=== PATIENT | female | born 1970 | race Caucasian/White ===

== ENCOUNTER 2018-03-23 15:13 | Emergency (ER) | payer OTHER ==
[2018-03-23 15:20] VITALS: BP 106/58; PULSE 90; RESP 18; TEMP 97.8; O2SAT 98
[2018-03-23] MEDS ORDERED: SODIUM CHLOR 0.9% 1000 ML INJ 1,000 ML IV ONE (15:31)
[2018-03-23] MEDS ORDERED: diphenhydrAMINE HCL 50 MG/ML VIAL IVP ONE (15:45)
[2018-03-23] MEDS ORDERED: SODIUM CHLORIDE 0.9% FLUSH 10 ML FLUSH IVF PRN (15:45)
[2018-03-23] MEDS ORDERED: PROCHLORPERAZINE INJ 10 MG/2 ML VIAL IVP ONE (15:45)
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
--- NOTE | 2018-03-23 16:44 | RADRPT ---
EXAM DATE: 03/23/2018 4:40 PM EDT AGE/SEX: 47 years / Female INDICATIONS: Cephalgia. CLINICAL DATA: This is the patient's initial encounter. Patient reports that signs and symptoms have been present for 2 days and indicates a pain score of 9/10. MEDICAL/SURGICAL HISTORY: . TBIDrug Use None. RADIATION DOSE: 36.48 CTDI (mGy) COMPARISON: No prior [facility] exams available for comparison. TECHNIQUE: CT of the head without contrast. Using automated exposure control and adjustment of the mA and/or kV according to patient size, radiation dose was kept as low as reasonably achievable to ob tain optimal diagnostic quality images. FINDINGS: Cerebrum: The ventricles are normal for age. No evidence of midline shift, mass lesion, hemorrhage or acute infarction. No extraaxial fluid collections are seen. Posterior Fossa: The cerebellum and brainstem are intact. The 4th ventricle is midline. The cerebe llopontine angle is unremarkable. Extracranial: The visualized portion of the orbits is intact. Skull: The calvaria is intact. No evidence of skull fracture. CONCLUSION: 1. Unremarkable examination. Electronically signed by: Jose Enrique MD 03/23/2018 4:42 PM EDT
--- NOTE | 2018-03-23 16:59 | PD ---
Data Data Last Documented VS Vital Signs Date Time Temp Pulse Resp B/P (MAP) Pulse Ox O2 Delivery O2 Flow Rate FiO2 03/23/18 15:20 97.8 90 18 106/58 (74) [address] Brain W/O Iv Contrast(Rout) (03/23/18 15:31) Ecg Monitoring (03/23/18 15:31) Iv Access Insert/Monitor (03/23/18 15:31) Oximetry (03/23/18 15:31) Sodium Chloride 0.9% Flush (Ns Flush) (03/23/18 15:45) Prochlorperazine Inj (Compazine Inj) (03/23/18 15:45) Diphenhydramine Inj (Benadryl Inj) (03/23/18 15:45) Sodium Chlor 0.9% 1000 Ml Inj (Ns 1000 M (03/23/18 15:31) MDM Supervised Visit with JESUS: Yes Narrative Course I, Dr. Rankin, have reviewed the advance practice practitioner's documentation and am in agreement, met with the patient face to face, made the diagnosis, and the medical decision making was done by me. *My assessment and Findings: CT scan is negative. She came in with headache. She is under the influence of drugs which she admits to doing. No neurologic deficit. Stable for outpatient follow-up Scripts No Active Prescriptions or Reported Meds Cj Rankin MD March 23, 2018 16:59
[2018-03-23] MEDS ORDERED: IBUP-232 PO (18:05)
[2018-03-23] MEDS ORDERED: KETOROLAC TROMETHAMINE 30 MG/ML (IVP) VIAL IV PUSH ONE (18:15)
== END 2018-03-23 18:17 | disposition home or self-care (01) ==
LOC: NEPD 15:13
DX: R51 Headache (principal); F17.200 Nicotine dependence, unspecified, uncomplicated
CPT/HCPCS: 70450; 96361; 96374; 96375; 99284; J0780; J1200; J1885; J7030

== ENCOUNTER 2018-03-27 06:58 | Inpatient (IN) | payer OTHER ==
[~2018-03-27] VITALS: Ht 160 cm; Wt 80.4 kg
[~2018-03-27 06:58] MED LIST: IBUP-232 PO
[2018-03-27 09:20] VITALS: BP 111/59; PULSE 65; RESP 16; TEMP 98; O2SAT 98
[2018-03-27] MEDS: NICOTINE 21 MG/24 HR PATCH T-DERMAL SCH (11:52)
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
[2018-03-27] MEDS: SULFAMETHOXAZOLE-TRIMETHOPRIM DS 800-160 MG TAB PO SCH ×2 (16:00→20:41)
[2018-03-27 20:41] LABS: ALBUMIN 2.5 GM/DL (3.4-5.0); AST (GOT) 19 U/L (15-37); BICARBONATE 24.6 MEQ/L (21.0-32.0); CALCIUM 8.6 MG/DL (8.5-10.1); CHLORIDE 109 MEQ/L (98-107); CREATININE 0.78 MG/DL (0.50-1.00); GLOMERULAR FILTRATION RATE 79 ML/MIN (>89); GLUCOSE,RANDOM 113 MG/DL (74-106); SODIUM (NA) 143 MEQ/L (136-145)
[2018-03-27 20:42] LABS: ALT (GPT) 15 U/L (10-53)
[2018-03-27 20:43] LABS: BLOOD UREA NITROGEN 5 MG/DL (7-18)
[2018-03-27 20:44] LABS: ALKALINE PHOSPHATASE 81 U/L (45-117); TOTAL BILIRUBIN ADULT 0.2 MG/DL (0.2-1.0); TOTAL PROTEIN 5.9 GM/DL (6.4-8.2)
[2018-03-27] MEDS: REMOVE OLD NICODERM (NICOTINE) PATCH T-DERMAL SCH (20:44)
[2018-03-28 06:33] VITALS: BP 122/70; PULSE 80; RESP 20; TEMP 98.4; O2SAT 96
[2018-03-28] MEDS: SULFAMETHOXAZOLE-TRIMETHOPRIM DS 800-160 MG TAB PO SCH ×2 (09:11→21:09)
[2018-03-28] MEDS: NICOTINE 21 MG/24 HR PATCH T-DERMAL SCH (09:11)
--- NOTE | 2018-03-28 10:01 | HHI.HP ---
Provisional Diagnosis Admission Date Mar 27, 2018 at 09:13 [place] I. 1. Adjustment disorder with depressed mood 2. Malingering for penitentiary 3. Polysubstance abuse [place] II. Deferred Certification of Person's Competence To Provide Express and Informed Consent I have personally examined Doreen Cardozo , a person being served at [facility] on, Mar 28, 2018 10:01. Express and informed consent means consent voluntarily given in writing, by a competent person, after sufficient explanation and disclosure of the subject matter involved to enable the person to make a knowing and willful decision without any element of force, fraud, deceit, duress, or other form of constraint or coercion. This person is 18 years of age or older, is not now known to be incompetent to consent to treatment with a guardian advocate, and does not have a health care surrogate or proxy currently making medical treatment decisions. I have found this person to be one of the following: [x] Competent to provide express and informed consent, as defined above, for voluntary admission to this facility and is competent to provide express and informed consent for treatment. He/she has the consistent capacity to make well reasoned, willful, and knowing decisions concerning his or her medical or mental health treatment. The person fully and consistently understands the purpose of the admission for examination/placement and is fully capable of personally exercising all rights assured [place] Incompetent to provide express and informed consent to voluntary admission, and this is incompetent to provide express and informed consent to treatment. The person must be transferred to involuntary status and a petition for a guardian advocate filed with the Circuit Court. [] Refusing to provide express and informed consent to voluntary admission but is competent to provide express and informed consent for treatment. The person must be discharged or transferred to involuntary status. Form shall be completed within 24 hours of a person's arrival at the receiving facility and filed in the clinical record of each person: 1. Admitted on a voluntary basis 2. Permitted to provide express and informed consent to his/her own treatment 3. Allowed to transfer from involuntary to voluntary status 4. Prior to permitting a person to consent to his or her own treatment after having been previously found incompetent to consent to treatment. History of Present Illness Capacity: Has Capacity Psych Chief Complaint: Suicidal threats HPI Ms. Cardozo is a 47-year-old female with a reported history of bipolar disorder who presents in transfer from [facility] under a Tellez act. Documentation from outside hospital reviewed. Patient presented there initially complaining of headache. She was evaluated and medically cleared. As she was being discharged, notes indicate that the patient "stated she lives in [place]/does not have home and does not want to leave the hospital." Notes further indicate that the patient threatened to jump in front of a car if she were discharged. Patient's case was presented to on-call psychiatrist Dr. Acosta at [facility] who is documented to have said that he knows the patient very well and that she has made similar threats in the past and that he believes that she is low risk "since there is a secondary gain that the patient is trying to achieve with making such comments." Despite this, decision was made at outside hospital to Tellez act the patient and send her to [place]. Reviewing our own electronic medical record, I see no previous psychiatric contact within our system. Patient seen and examined with nurse. Chart reviewed. Case discussed with nursing staff. On my examination today, the patient is a vague and fairly manipulative historian. She claims to have felt depressed for the last month without clear trigger. She endorses some guilty feelings "missing out on my grandkids." She says that she had suicidal ideation "the other night" with plan to jump in front of a vehicle, although she denies any suicidal ideation now. No other depressive symptoms. No hypomanic or manic symptoms presently, although the patient does report a history of bipolar disorder and insists that she has had an episode consistent with adrien as I describe it to her in the past. She reports audiovisual hallucinations in the past associated with substance use but denies any now. I can elicit no paranoia, no ideas of reference, no thought insertion or withdrawal or other delusional material. Remainder of the psychiatric ROS is negative. No acute physical complaints. Past psychiatric history: Patient reports a history of bipolar disorder. She is not currently under the care of a psychiatrist. She was admitted a few years ago to a facility called [facility]. She endorses previous suicide attempt by jumping in front of a car in 1998. She reports 1 other suicide attempt although she cannot recall the method. She denies any history of violent behavior. Family history: Patient is unsure of family psychiatric history. She does think that a cousin may have completed suicide. Chemical dependency history: The patient admits to current methamphetamine use. She endorses a history of cocaine and opiate use in the past. She has had a history of outpatient chemical dependency treatment. No reported history of abuse of GABAergic agents. Social history: Patient is homeless. She is . She has 3 sons and also has a daughter who 3 years ago following a motor vehicle accident. She has 1/10 grade education. She does not work. Denies any history. Denies any legal history. Denies any access to guns or firearms. She is a Protestant. She denies any history of abuse. Review of Systems Except as stated in HPI: all other systems reviewed are Neg Past Family Social History Coded Allergies: No Known Allergies (Verified Allergy, Mild, 03/23/18) milk (Verified Allergy, Unknown, 03/27/18) Past Medical History See electronic medical record Active Scripts Ibuprofen (Ibuprofen) 600 Mg Tab, 600 MG PO TID Y for PAIN SCALE 1 TO 10, #21 TAB 0 Refills Prov:Deborah Redman 03/23/18 Current Medications Medications (Trade) Dose Ordered Sig/Florinda Route Start Time Stop Time Status Last Admin (Habitrol 21 Mg Patch.24 Hr) 1 patch DAILY T-DERMAL 03/27/18 12:00 03/28/18 09:11 Miscellaneous Information 1 HS T-DERMAL 03/27/18 21:00 03/27/18 20:44 (Bactrim Ds 800-160 Mg) 1 tab Q12HR PO 03/27/18 16:00 04/06/18 15:59 03/28/18 09:11 Patient's Strengths (min. 2) Attending to basic needs. Verbally fluent. Physical Exam Physical examination completed by ED provider at outside hospital. On my examination today, the patient appears to be in no acute physical distress. No motor abnormalities noted. No signs of intoxication or withdrawal noted. Labs and vitals reviewed: Vital Signs Vital Signs Date Time Temp Pulse Resp B/P (MAP) Pulse Ox O2 Delivery O2 Flow Rate FiO2 03/28/18 06:33 98.4 80 20 122/70 (87) 96 Lab Results Test 03/27/18 19:50 03/28/18 06:00 Blood Urea Nitrogen 5 MG/DL Creatinine 0.78 MG/DL Random Glucose 113 MG/DL Total Protein 5.9 GM/DL Albumin 2.5 GM/DL Calcium Level 8.6 MG/DL Alkaline Phosphatase 81 U/L Aspartate Amino Transf (AST/SGOT) 19 U/L Alanine Aminotransferase (ALT/SGPT) 15 U/L Total Bilirubin 0.2 MG/DL Sodium Level 143 MEQ/L Potassium Level 4.0 MEQ/L Chloride Level 109 MEQ/L Carbon Dioxide Level 24.6 MEQ/L Anion Gap 9 MEQ/L Estimat Glomerular Filtration Rate 79 ML/MIN Laboratories from outside hospital reviewed: CBC reveals white blood cell count of 12.1. CMP unremarkable. Alcohol level undetectable. Hydroxybutyrate level undetectable. Glucose level 234. CT head no acute process. Urine toxicology positive for amphetamines and cannabinoids. Urinalysis reveals no leukocyte esterase no nitrites no pyuria. Mental Status Examination Appearance: Appropriate Consciousness: Alert Orientation: x4 Motor Activity: Normal gait Speech: Unremarkable Language: Adequate Fund of Knowledge: Adequate Attention and Concentration: Adequate Memory: Unremarkable (Grossly intact on clinical exam) Mood: Other (Dysphoric) Affect: Other (Tearful at times) Thought Process & Associations: Intact, Logical, Linear Thought Content: Appropriate Hallucination Type: None Delusion Type: None Suicidal Ideation: No Suicidal Plan: No Suicidal Intention: No Homicidal Ideation: No Homicidal Plan: No Homicidal Intention: No Insight: Fair Judgment: Impulsive Assessment & Plan Problem List: (1) Adjustment disorder with depressed mood ICD Codes: F43.21 - Adjustment disorder with depressed mood (2) Malingering ICD Codes: Z76.5 - Malingerer [conscious simulation] (3) Polysubstance abuse ICD Codes: F19.10 - Other psychoactive substance abuse, uncomplicated Assessment & Plan 47-year-old female with psychiatric history as detailed above who presents in transfer from outside hospital under a Tellez act. In reviewing documentation from outside hospital, it seems quite likely that she was malingering psychiatric symptoms at outside hospital with the goal of obtaining admission to inpatient unit for penitentiary. Admission having been obtained, the patient is now denying suicidal ideation presently. She does admit to some ongoing dysphoria and reports a history of possible manic episode in the past. 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 Admit inpatient. Voluntary status. Initiate Seroquel 50 mg at bedtime to target patient's dysphoria. Atarax as needed for anxiety. Benadryl as needed for sleep. R/B/A for medications discussed with patient. Hospitalist already consulted. Check beta hCG and hemoglobin A1c. Patient had significant hyperglycemia at outside hospital, and so I will initiate diabetic diet and Accu -Cheks with sliding scale while awaiting hemoglobin A1c. Check EKG for QTc. Vitals every shift. Counselor to see. Disposition planning. Estimated length of stay: 2-3 days. Discharge Planning Pending outcome of observation Request HC Surrog/Guard Advoc?: No Julio Thao MD Mar 28, 2018 10:01
[2018-03-28] MEDS ORDERED: LIDOCAINE 1%/EPINEPHrine 1:100,000 SOLN 20 ML VIAL INFIL ONE (12:15)
[2018-03-28] MEDS ORDERED: DEXTROSE 50% IN WATER 50 ML VIAL(D50) IV PUSH PRN (12:30)
[2018-03-28] MEDS ORDERED: GLUCAGON 1 MG/ML VIAL OTHER PRN (12:30)
--- NOTE | 2018-03-28 14:48 | MB ---
cc: Weston Alicea MD DATE: 03/28/2018 CHIEF COMPLAINT AND REASON FOR CONSULTATION: Right lower quadrant abdominal wall abscess. HISTORY OF PRESENT ILLNESS: The patient is a 47-year-old female who presents with polysubstance abuse, IVDA, depression and suicidal ideation with drug addiction. The patient was noted to be injecting methamphetamines approximately 4-5 days ago when she started to develop redness and pain at her right lower quadrant of the abdomen. She states the pain was a 6/10 currently is 5/10, no radiation, worse with movement, better with lying still. She also noted associated warmth and redness that continued to get worse with some drainage. She denied any associated fevers or chills. She is otherwise tolerating diet and eating regularly. She has no history of previous abscesses. Surgery was consulted for further evaluation. PAST MEDICAL HISTORY: Hepatitis C, head injury, depression. PAST SURGICAL HISTORY: Tubal ligation. MEDICATIONS: See EMR. ALLERGIES: NO KNOWN DRUG ALLERGIES. SOCIAL HISTORY: Positive smoking 1-1/2 packs per day, occasional ETOH, positive IVDA, history of cocaine use. FAMILY HISTORY: denies htn or diabetes REVIEW OF SYSTEMS: GENERAL: Denies fever or chills. HEENT: Denies eye pain, ear pain. NECK: Denies swelling or pain. LUNGS: Denies cough or wheeze. HEART: Denies palpitations or chest pain. ABDOMEN: Complains of abdominal pain. Denies vomiting. GENITOURINARY: Denies dysuria, hematuria. ENDOCRINE: Denies polyuria or polydipsia. INTEGUMENT: Denies any masses. Complains of redness. PHYSICAL EXAMINATION: GENERAL: In no acute distress. VITAL SIGNS: Temperature 98, pulse 65, respirations 16, blood pressure 111/59, saturation 98%. HEENT: Pupils equal, round, reactive. NECK: Supple. Trachea midline. LUNGS: Clear to auscultation, bilateral expansion. HEART: S1, S2. Regular rhythm. ABDOMEN: Soft. EXTREMITIES: Positive tenderness to palpation in the right lower quadrant. Area of erythema approximately 15 x 15 cm. Two punctate lesions with purulent exudate draining from that. Two other small palpable nodules, right lower anterior abdomen, 1 x 1 cm each. Positive tenderness to palpation. No other abscesses noted. PSYCHIATRIC: Depression, appropriate judgment. NEUROLOGIC: 5/5 in all extremities. GCS of 15. LABORATORY AND DIAGNOSTIC DATA: Pending. Sodium 143, potassium 4, chloride 109, BUN 5, creatinine 0.7, calcium 8.6, AST 19, ALT 15, albumin 2.5. ASSESSMENT: The patient is a 47-year-old female with right lower quadrant abdominal abscess. PLAN: In a full workup, patient with above-named issues At this point, recommend IV antibiotics. The patient can have a regular diet. I will check an ultrasound to quantify the size of fluid collection and also evaluate the other 2 palpable nodules that are in the subcutaneous tissue. The patient will likely need I and D at bedside. Discussed with the patient in detail. Continue pain control, close monitoring and wound care. MD KESHA Lopez/NEISHA , 02:17 PM , 02:47 PM DALE
[2018-03-28 14:51] LABS: AUTOMATED NEUTROPHIL # 5.6 TH/MM3 (1.8-7.7); BASOPHIL # 0.1 TH/MM3 (0-0.2); BASOPHIL % 1.3 % (0.0-2.0); EOSINOPHIL # 0.1 TH/MM3 (0-0.4); EOSINOPHIL % 1.5 % (0.0-4.0); HEMATOCRIT 36.8 % (35.0-46.0); HEMOGLOBIN 11.9 GM/DL (11.6-15.3); LYMPH % 34.7 % (9.0-44.0); LYMPHOCYTE # 3.4 TH/MM3 (1.0-4.8); MEAN CELL VOLUME 83.1 FL (80.0-100.0); MEAN CORPUSCULAR HEMOGLOBIN 26.8 PG (27.0-34.0); MEAN CORPUSCULAR HGB CONC 32.3 % (32.0-36.0); MEAN PLATELET VOLUME 9.9 FL (7.0-11.0); MONO % 5.9 % (0.0-8.0); MONOCYTE # 0.6 TH/MM3 (0-0.9); NEUT % 56.6 % (16.0-70.0); PLATELET COUNT 318 TH/MM3 (150-450); RED BLOOD COUNT 4.43 MIL/MM3 (4.00-5.30); RED CELL DISTRIBUTION WIDTH 15.7 % (11.6-17.2); WHITE BLOOD COUNT 9.9 TH/MM3 (4.0-11.0)
[2018-03-28] MEDS: ACETAMINOPHEN 325 MG TAB PO PRN ×2 (16:06→21:09)
[2018-03-28] MEDS: INSULIN ASPART SUPPLEMENTAL SCALE SQ SCH ×2 (16:47→21:00)
[2018-03-28 16:57] VITALS: BP 120/72; PULSE 77; RESP 18; TEMP 97.9; O2SAT 100
[2018-03-28 17:06] LABS: HEMOGLOBIN A1C 5.8 % (4.3-6.0)
[2018-03-28] MEDS: hydrOXYzine HCL 50 MG TAB PO PRN (18:52)
--- NOTE | 2018-03-28 19:17 | PD.OP ---
Operative Report Date of Surgery: Mar 28, 2018 Preoperative Diagnosis: (1) Abscess of skin of abdomen Postoperative Diagnosis: (1) Abscess of skin of abdomen Procedure: Incision and drainage of superficial abdominal abscesses Anesthesia: Local Surgeon: Margarita NAVARRO supervised by Dr. Alicea [employer] Operator(s): None Operation and Findings: After informed consent and the proper time out procedure was completed, the three areas that needed to be incised and drained where cleaned with Betadine and draped with sterile OR towels. The areas were injected with small wheals of lidocaine. Small incisions were made into the abscesses and drained. Cultures were obtained. 1/4 inch Iodoform packing was placed into the cavities to allow continued drainage. All supplies including sharps were obtained, collected and disposed of in the proper manner. The patient tolerated the procedure well. IAM Tatum was present for the entirety of the procedure. Margarita Howell/Social Service Liaison MELANIE Mar 28, 2018 19:17
[2018-03-28] MEDS ORDERED: diphenhydrAMINE HCL 50 MG CAP PO PRN (21:00)
[2018-03-28] MEDS ORDERED: QUEtiapine FUMARATE 25 MG TAB PO SCH (21:00)
[2018-03-28] MEDS: REMOVE OLD NICODERM (NICOTINE) PATCH T-DERMAL SCH (21:00)
--- NOTE | 2018-03-28 22:25 | RADRPT ---
EXAM DATE: 03/28/2018 2:34 PM EDT AGE/SEX: 47 years / Female INDICATIONS: Abdominal palpable lumps. CLINICAL DATA: This is the patient's initial encounter. Patient reports that signs and symptoms have been present for 3 days and indicates a pain score of 5/10. Location: Laterality: MEDICAL/SURGICAL HISTORY: Previous head injuries. Depression. Substance use. Tubal ligation. COMPARISON: No prior [facility] exams available for comparison. No external comparison. FINDINGS: In the areas of palpable abnormality there are multiple small complex septated fluid collections in t he right lower quadrant anterior abdominal wall measuring up to 10 mm x 7 mm x 6 mm and 10 mm x 8 mm x 7 mm. On the left side additional complex fluid/phlegmonous mass measures up to 2 x 2.1 x 0.7 cm an d 1.4 x 1.2 x 1.3 cm. CONCLUSION: 1. Multiple complex fluid collections or phlegmonous masses in the lower anterior abdominal wall on the left side and the right side, possibly small subcutaneous abscesses or inflammatory changes. Electronically signed by: Enrrique Beach MD 03/28/2018 10:24 PM EDT
[2018-03-29 06:00] VITALS: BP 119/72; PULSE 82; RESP 17; TEMP 97.6; O2SAT 97
[2018-03-29] MEDS: INSULIN ASPART SUPPLEMENTAL SCALE SQ SCH ×4 (08:00→21:00)
--- NOTE | 2018-03-29 09:00 | HHI.PYPN ---
Subjective Chief Complaint: Suicidal threats Remarks Patient seen and examined with nurse. Chart reviewed. Case discussed with nursing staff. No behavioral issues noted overnight. Case discussed in treatment team. On my examination today, the patient reports that she slept well overnight with the addition of Seroquel. Mood is slowly improving. She denies any suicidal or homicidal ideation. Denies any audiovisual hallucinations. Denies any side effects from medications. Complains of some mild discomfort associated with abscesses but no other physical complaints. She reports that it is her plan after discharge to go stay with her mother in [facility]. Counselor has confirmed with mother that patient is able to stay with her. Review of Systems Except as stated in HPI: all other systems reviewed are Neg Mental Status Examination Appearance: Appropriate Consciousness: Alert Orientation: x4 Motor Activity: Other (No motor abnormalities noted) Speech: Unremarkable Language: Adequate Fund of Knowledge: Adequate Attention and Concentration: Adequate Memory: Unremarkable (Grossly intact on clinical exam) Mood: Other (Improving) Affect: Blunt Thought Process & Associations: Intact, Logical, Linear Thought Content: Appropriate Hallucination Type: None Delusion Type: None Suicidal Ideation: No Suicidal Plan: No Suicidal Intention: No Homicidal Ideation: No Homicidal Plan: No Homicidal Intention: No Insight: Fair Judgment: Impulsive Results Labs Test 03/28/18 13:25 White Blood Count 9.9 TH/MM3 Red Blood Count 4.43 MIL/MM3 Hemoglobin 11.9 GM/DL Hematocrit 36.8 % Mean Corpuscular Volume 83.1 FL Mean Corpuscular Hemoglobin 26.8 PG Mean Corpuscular Hemoglobin Concent 32.3 % Red Cell Distribution Width 15.7 % Platelet Count 318 TH/MM3 Mean Platelet Volume 9.9 FL Neutrophils (%) (Auto) 56.6 % Lymphocytes (%) (Auto) 34.7 % Monocytes (%) (Auto) 5.9 % Eosinophils (%) (Auto) 1.5 % Basophils (%) (Auto) 1.3 % Neutrophils # (Auto) 5.6 TH/MM3 Lymphocytes # (Auto) 3.4 TH/MM3 Monocytes # (Auto) 0.6 TH/MM3 Eosinophils # (Auto) 0.1 TH/MM3 Basophils # (Auto) 0.1 TH/MM3 CBC Comment DIFF FINAL Differential Comment Hemoglobin A1c 5.8 % Beta HCG, Qualitative 3 MIU/ML Date/Time Source Procedure Growth Status 03/28/18 17:00 Abscess Abdomen Gram Stain Pending Received 03/28/18 17:00 Abscess Abdomen Wound Culture Pending Received Labs reviewed Last Impressions Soft Tissue Ultrasound 03/28/18 0000 Signed Impressions: CONCLUSION: 1. Multiple complex fluid collections or phlegmonous masses in the lower anter ior abdominal wall on the left side and the right side, possibly small subcutan eous abscesses or inflammatory changes. EKG is NSR with QTc 410ms. Vitals/IOs Vital Signs Date Time Temp Pulse Resp B/P (MAP) Pulse Ox O2 Delivery O2 Flow Rate FiO2 03/29/18 06:00 97.6 82 17 119/72 (88) 97 Intake and Output 03/29/18 03/29/18 03/30/18 08:00 16:00 00:00 Intake Total 600 ml 360 ml Balance 600 ml 360 ml Assessment & Plan Problem List: (1) Adjustment disorder with depressed mood ICD Codes: F43.21 - Adjustment disorder with depressed mood (2) Malingering ICD Codes: Z76.5 - Malingerer [conscious simulation] (3) Polysubstance abuse ICD Codes: F19.10 - Other psychoactive substance abuse, uncomplicated Assessment & Plan Titrate Seroquel to 75 mg at bedtime for additional mood stabilization. Hospitalist and surgery input noted and appreciated. Will follow up wound cultures. Continue to monitor on the inpatient unit. Continue other medications and care as ordered. Justification for Cont. Inpt. Medication changes. Complicating conditions. Discharge Planning Anticipate psychiatric stabilization within the next 1-3 days. Disposition thereafter will depend on whether the patient is medically cleared at that time. Request HC Surrog/Guard Advoc?: No Julio Thao MD Mar 29, 2018 08:59
[2018-03-29] MEDS: NICOTINE 21 MG/24 HR PATCH T-DERMAL SCH (09:04)
[2018-03-29] MEDS: SULFAMETHOXAZOLE-TRIMETHOPRIM DS 800-160 MG TAB PO SCH ×2 (09:04→21:06)
[2018-03-29] MEDS: ACETAMINOPHEN 325 MG TAB PO PRN ×2 (09:11→16:11)
--- NOTE | 2018-03-29 09:12 | HHI.PR ---
Subjective Remarks Follow up on patient with abdominal abscesses. Patient seen and examined. Patient denies any fever or chills. Denies any rash. Denies any chest pain or shortness of breath. Reports incisional pain controlled at present. She has not had the dressings changed as of yet. No diarrhea. Patient has not had BM since admission. Afebrile, VSS. Wound cx pending. Objective Vitals Vital Signs Date Time Temp Pulse Resp B/P (MAP) Pulse Ox O2 Delivery O2 Flow Rate FiO2 03/29/18 06:00 97.6 82 17 119/72 (88) 97 03/28/18 16:57 97.9 77 18 120/72 (88) 100 I/O 03/28/18 03/28/18 03/28/18 03/29/18 03/29/18 03/29/18 07:00 15:00 23:00 07:00 15:00 23:00 Intake Total 580 ml 600 ml 360 ml Balance 580 ml 600 ml 360 ml Intake Oral 480 ml 600 ml 360 ml Oral Supplement 100 ml # Voids 1 Result Diagram: 03/28/18 1325 03/27/18 1950 Imaging Last Impressions Soft Tissue Ultrasound 03/28/18 0000 Signed Impressions: CONCLUSION: 1. Multiple complex fluid collections or phlegmonous masses in the lower anter ior abdominal wall on the left side and the right side, possibly small subcutan eous abscesses or inflammatory changes. Objective Remarks GENERAL: Well-nourished, well-developed middle-aged female patient in [facility]. Awake and alert. Appears comfortable. SKIN: Warm and dry. No rash. Bilateral lateral abdomen/flank area s/p I&D with dressings in place, saturated with serosanguineous fluid. HEAD: Normocephalic. Atraumatic. EYES: Pupils equal and round. No scleral icterus. No injection or drainage. ENT: No nasal bleeding or discharge. Mucous membranes pink and moist. NECK: Supple. Trachea midline. CARDIOVASCULAR: Regular rate and rhythm. No murmur appreciated. RESPIRATORY: Nonlabored. Clear to auscultation. Breath sounds equal bilaterally. GASTROINTESTINAL: Abdomen soft, non-tender, nondistended. Normoactive bowel sounds x4. MUSCULOSKELETAL: No obvious deformities. Extremities without clubbing, cyanosis , or edema. NEUROLOGICAL: Awake and alert. No obvious cranial nerve deficits. Motor grossly within normal limits. Moving all extremities spontaneously. Normal speech. PSYCHIATRIC: Calm and cooperative with examination. Procedures s/p bedside I&D bilateral lateral abdominal/flank areas by Dr. Alicea A/P Problem List: (1) Abscess of skin of abdomen ICD Code: L02.211 - Cutaneous abscess of abdominal wall Assessment and Plan 47-year-old female with history of head injury in 1998, polysubstance use, IVDU , tobacco use, admitted to inpatient psych for depression, suicidal ideation, and drug addiction. Hospitalist consulted for "draining abscesses on abdomen". Depression/suicidal ideation: Acute -Continue management per psychiatry Polysubstance Abuse/IVDU: Acute -Patient reports she wants help getting clean -Continue management per psychiatry -Monitor for withdrawal Right abdominal abscesses 2: Acute, after injecting methamphetamine into this area. Afebrile. -GS following, s/p bedside I&D. To begin BID dressing changes today per GS. Ok to continue with po Bactrim. -Started on Bactrim 1 tab p.o. twice daily 10 days, continue -follow up on final culture results -Tylenol prn pain -Monitor for improvement Tobacco use: Chronic, smokes 1-1.5 PPD -Pastry Cook on cessation -Nicotine patch Constipation -begin PeriColace BID -monitor for BM DVT prophylaxis: Patient is ambulatory Floridalma Parmar Mar 29, 2018 09:12
--- NOTE | 2018-03-29 10:01 | HHI.PR ---
Subjective Subjective Notes Resting in bed Upset that dressings needs to be changed Objective Vitals/I&O Vital Signs Date Time Temp Pulse Resp B/P (MAP) Pulse Ox O2 Delivery O2 Flow Rate FiO2 03/29/18 06:00 97.6 82 17 119/72 (88) 97 Labs Laboratory Tests Test 03/28/18 13:25 White Blood Count 9.9 Red Blood Count 4.43 Hemoglobin 11.9 Hematocrit 36.8 Mean Corpuscular Volume 83.1 Mean Corpuscular Hemoglobin 26.8 Mean Corpuscular Hemoglobin Concent 32.3 Red Cell Distribution Width 15.7 Platelet Count 318 Mean Platelet Volume 9.9 Neutrophils (%) (Auto) 56.6 Lymphocytes (%) (Auto) 34.7 Monocytes (%) (Auto) 5.9 Eosinophils (%) (Auto) 1.5 Basophils (%) (Auto) 1.3 Neutrophils # (Auto) 5.6 Lymphocytes # (Auto) 3.4 Monocytes # (Auto) 0.6 Eosinophils # (Auto) 0.1 Basophils # (Auto) 0.1 CBC Comment DIFF FINAL Differential Comment Hemoglobin A1c 5.8 Beta HCG, Qualitative 3 Date/Time Source Procedure Growth Status 03/28/18 17:00 Abscess Abdomen Gram Stain - Final Resulted 03/28/18 17:00 Abscess Abdomen Wound Culture Pending Resulted Cardiovascular: Regular Lungs: Clear Abdomen: Other (s/p I&D of RIGHT midabomen and LEFT midabomen--- packing removed and repacked--- far less redness than yesterday ) Extremities: No edema A/P Assessment and Plan 47 year old female POD1 bedside I&D of superficial abdominal abscesses -Continue BID dressing changes with Iodoform packing -Await cultures -Currently on Bactrim -Regular diet -Okay to shower inbetween dressing changes -Dressings done with IAM Maldonado Attending Statement patient seen at bedside pt doing better still with pain but better packing in place no fevers c/w dressing changes Attestation The exam, history, and the medical decision-making described in the above note were completed with the assistance of the mid-level provider. I reviewed and agree with the findings presented. I attest that I had a [id number] encounter with the patient on the same day, and personally performed and documented my assessment and findings in the medical record. Margarita Howell/First Gage NAVARRO Mar 29, 2018 10:01 Weston Alicea MD Apr 04, 2018 22:14
--- NOTE | 2018-03-29 15:22 | EKG ---
Date Performed: 03/28/2018 Time Performed: 13:56:00 PTAGE: 47 years EKG: Sinus rhythm NORMAL ECG NO PREVIOUS TRACING DOCTOR: Nora Lima Interpretating Date/Time 03/29/2018 15:20:57
[2018-03-29] MEDS: DOCUSATE SODIUM 50 MG/SENNA 8.6 MG TAB PO SCH ×2 (16:11→21:06)
[2018-03-29] MEDS ORDERED: Vancomycin Consult Pharmacy 1 EA OTHER SCH (16:15)
[2018-03-29] MEDS ORDERED: VANCOMYCIN 1,500 MG/NS 500 ML IV ONE ×2 (17:00)
[2018-03-29 18:10] VITALS: BP 98/62; PULSE 68; RESP 16; TEMP 98.1; O2SAT 96
[2018-03-29] MEDS: REMOVE OLD NICODERM (NICOTINE) PATCH T-DERMAL SCH (21:00)
[2018-03-29] MEDS ORDERED: QUEtiapine FUMARATE 25 MG TAB PO SCH (21:00)
[2018-03-30] MEDS: ACETAMINOPHEN 325 MG TAB PO PRN ×2 (04:35→10:16)
[2018-03-30] MEDS: VANCOMYCIN 1,000 MG/NS 250 ML IV SCH ×4 (04:36→17:00)
[2018-03-30 05:41] VITALS: BP 97/53; PULSE 55; RESP 16; TEMP 98.4; O2SAT 97
--- NOTE | 2018-03-30 07:52 | HHI.PR ---
Subjective Remarks Follow up on patient with abdominal abscesses. Patient seen and examined. Patient complaining of persistent right sided abdominal pain since having dressings changed yesterday. She refuses to have another dressing change without pain medication. She denies any fever or chills. She denies any chest pain or dyspnea. She denies any N/V. She has not had a BM since admission but states she "feels close". She is afebrile. Objective Vitals Vital Signs Date Time Temp Pulse Resp B/P (MAP) Pulse Ox O2 Delivery O2 Flow Rate FiO2 03/30/18 05:41 98.4 55 16 97/53 (68) 97 03/30/18 05:35 16 03/29/18 18:10 98.1 68 16 98/62 (74) 96 I/O 03/29/18 03/29/18 03/29/18 03/30/18 03/30/18 03/30/18 07:00 15:00 23:00 07:00 15:00 23:00 Intake Total 600 ml 360 ml 1320 ml 480 ml Balance 600 ml 360 ml 1320 ml 480 ml Intake Oral 600 ml 360 ml 1320 ml 480 ml # Voids 1 2 Result Diagram: 03/28/18 1325 03/27/18 1950 Imaging Last Impressions Soft Tissue Ultrasound 03/28/18 0000 Signed Impressions: CONCLUSION: 1. Multiple complex fluid collections or phlegmonous masses in the lower anter ior abdominal wall on the left side and the right side, possibly small subcutan eous abscesses or inflammatory changes. Objective Remarks GENERAL: Well-nourished, well-developed middle-aged female patient in [facility]. Asleep but easily awakens to voice. SKIN: Warm and dry. No rash. Bilateral lateral abdomen/flank area s/p I&D with dressings in place, right sided dressings with bloody drainage, left sided dressing C/D/I. HEAD: Normocephalic. Atraumatic. EYES: Pupils equal and round. No scleral icterus. No injection or drainage. ENT: No nasal bleeding or discharge. Mucous membranes pink and moist. NECK: Supple. Trachea midline. CARDIOVASCULAR: Regular rate and rhythm. No murmur appreciated. RESPIRATORY: Nonlabored. Clear to auscultation. Breath sounds equal bilaterally. GASTROINTESTINAL: Abdomen soft, non-tender, nondistended. Normoactive bowel sounds x4. MUSCULOSKELETAL: No obvious deformities. Extremities without clubbing, cyanosis , or edema. NEUROLOGICAL: Awake and alert. No obvious cranial nerve deficits. Motor grossly within normal limits. Moving all extremities spontaneously. Normal speech. PSYCHIATRIC: Calm and cooperative with examination. Procedures s/p bedside I&D bilateral lateral abdominal/flank areas by Dr. Alicea A/P Problem List: (1) Abscess of skin of abdomen ICD Code: L02.211 - Cutaneous abscess of abdominal wall Assessment and Plan 47-year-old female with history of head injury in 1998, polysubstance use, IVDU , tobacco use, admitted to inpatient psych for depression, suicidal ideation, and drug addiction. Hospitalist consulted for "draining abscesses on abdomen". Depression/suicidal ideation: Acute -Continue management per psychiatry Polysubstance Abuse/IVDU: Acute -Patient reports she wants help getting clean -Continue management per psychiatry -Monitor for withdrawal Right abdominal abscesses 2: Acute, after injecting methamphetamine into this area. Afebrile. -GS following, s/p bedside I&D. Continue BID dressing changes with iodoform packing per GS orders. Pain management for dressing changes per GS. -Gram stain gram + cocci in pairs, wound cx growing GNR -continue on IV Vancomycin -Started on Bactrim 1 tab p.o. 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
[2018-03-30] MEDS: INSULIN ASPART SUPPLEMENTAL SCALE SQ SCH ×4 (08:00→20:40)
[2018-03-30] MEDS ORDERED: POLYETHYLENE GLYCOL 17 GM PKG PO ONE (08:00)
[2018-03-30] MEDS: NICOTINE 21 MG/24 HR PATCH T-DERMAL SCH (09:00)
[2018-03-30 09:04] LABS: CREATININE 0.93 MG/DL (0.50-1.00)
[2018-03-30] MEDS: SULFAMETHOXAZOLE-TRIMETHOPRIM DS 800-160 MG TAB PO SCH ×2 (10:10→22:14)
[2018-03-30] MEDS: DOCUSATE SODIUM 50 MG/SENNA 8.6 MG TAB PO SCH ×2 (10:10→22:14)
--- NOTE | 2018-03-30 10:51 | HHI.PYPN ---
Subjective Chief Complaint: Suicidal threats Remarks Patient seen and examined with nurse. Chart reviewed. Case discussed with nursing staff. On my examination today, the patient continues to complain of some low mood. She is intermittently tearful. She does feel that she is improving with Seroquel and is tolerating this medication well. No SI or HI. Says that she is hopeful to go stay with her mother to assist in the care of patient's grandchildren who reside with mother. No side effects from medications. No acute physical complaints. Review of Systems Except as stated in HPI: all other systems reviewed are Neg Mental Status Examination Appearance: Appropriate Consciousness: Alert Orientation: x4 Motor Activity: Other (No abnormal motor movements noted) Speech: Unremarkable Language: Adequate Fund of Knowledge: Adequate Attention and Concentration: Adequate Memory: Unremarkable (Grossly intact on clinical exam) Mood: Other (Dysphoric but improving) Affect: Blunt Thought Process & Associations: Intact, Logical, Linear Thought Content: Appropriate Hallucination Type: None Delusion Type: None Suicidal Ideation: No Suicidal Plan: No Suicidal Intention: No Homicidal Ideation: No Homicidal Plan: No Homicidal Intention: No Insight: Fair Judgment: Impulsive Results Labs Test 03/30/18 07:59 Blood Urea Nitrogen 9 MG/DL Creatinine 0.93 MG/DL Estimat Glomerular Filtration Rate 65 ML/MIN Date/Time Source Procedure Growth Status 03/28/18 17:00 Abscess Abdomen Gram Stain - Final Complete 03/28/18 17:00 Wound Culture - Final Klebsiella Oxytoca Complete Labs reviewed Vitals/IOs Vital Signs Date Time Temp Pulse Resp B/P (MAP) Pulse Ox O2 Delivery O2 Flow Rate FiO2 03/30/18 05:41 98.4 55 16 97/53 (68) 97 Intake and Output 03/30/18 03/30/18 03/31/18 08:00 16:00 00:00 Intake Total 480 ml Balance 480 ml Assessment & Plan Problem List: (1) Adjustment disorder with depressed mood ICD Codes: F43.21 - Adjustment disorder with depressed mood (2) Malingering ICD Codes: Z76.5 - Malingerer [conscious simulation] (3) Polysubstance abuse ICD Codes: F19.10 - Other psychoactive substance abuse, uncomplicated Assessment & Plan Titrate Seroquel to 25 mg in the morning and 100 mg at bedtime for mood stabilization. Hospitalist input noted and appreciated. Continue to monitor on the medical psychiatric unit. Continue other medications and care as ordered. Justification for Cont. Inpt. Med changes. Risk for decompensation in less restrictive environment. Discharge Planning Pending psychiatric stabilization Request HC Surrog/Guard Advoc?: No Julio Thao MD Mar 30, 2018 10:51
[2018-03-30] MEDS: QUEtiapine FUMARATE 25 MG TAB PO SCH ×2 (11:00→22:14)
[2018-03-30] MEDS: hydrOXYzine HCL 50 MG TAB PO PRN (14:00)
[2018-03-30] MEDS ORDERED: PHARMACY ORDERED LAB ONE (16:45)
[2018-03-30 18:00] VITALS: BP 103/59; PULSE 71; RESP 17; TEMP 98.1; O2SAT 94
[2018-03-30] MEDS: REMOVE OLD NICODERM (NICOTINE) PATCH T-DERMAL SCH (21:00)
[2018-03-31] MEDS: VANCOMYCIN 1,000 MG/NS 250 ML IV SCH ×2 (05:27)
[2018-03-31 07:54] VITALS: BP 94/50; PULSE 58; RESP 17; TEMP 97.5; O2SAT 94
[2018-03-31] MEDS: INSULIN ASPART SUPPLEMENTAL SCALE SQ SCH ×4 (08:00→21:00)
[2018-03-31] MEDS: DOCUSATE SODIUM 50 MG/SENNA 8.6 MG TAB PO SCH ×2 (09:00→22:18)
[2018-03-31 09:20] VITALS: BP 102/51; PULSE 72
[2018-03-31] MEDS: SULFAMETHOXAZOLE-TRIMETHOPRIM DS 800-160 MG TAB PO SCH ×2 (09:21→22:18)
[2018-03-31] MEDS: QUEtiapine FUMARATE 25 MG TAB PO SCH ×2 (09:23→22:19)
[2018-03-31] MEDS: NICOTINE 21 MG/24 HR PATCH T-DERMAL SCH (09:23)
--- NOTE | 2018-03-31 11:16 | HHI.PR ---
Subjective Remarks Follow up on patient with abdominal abscesses. Patient seen and examined. Patient complaining of abdominal soreness. She wants to know why her wounds have to be packed. She is planning on taking a shower later this morning. She denies any fever chills. Denies any chest pain or shortness of breath. Denies any nausea or vomiting. She reports a bowel movement yesterday. She denies any urinary difficulties. Objective Vitals Vital Signs Date Time Temp Pulse Resp B/P (MAP) Pulse Ox O2 Delivery O2 Flow Rate FiO2 03/31/18 09:20 72 102/51 (68) 03/31/18 07:54 97.5 58 17 94/50 (65) 94 03/30/18 18:00 98.1 71 17 103/59 (74) 94 I/O 03/30/18 03/30/18 03/30/18 03/31/18 03/31/18 03/31/18 07:00 15:00 23:00 07:00 15:00 23:00 Intake Total 1080 ml 960 ml 2280 ml 240 ml Balance 1080 ml 960 ml 2280 ml 240 ml Intake Oral 1080 ml 960 ml 2280 ml 240 ml # Voids 2 6 Result Diagram: 03/28/18 1325 03/30/18 0759 Imaging Last Impressions Soft Tissue Ultrasound 03/28/18 0000 Signed Impressions: CONCLUSION: 1. Multiple complex fluid collections or phlegmonous masses in the lower anter ior abdominal wall on the left side and the right side, possibly small subcutan eous abscesses or inflammatory changes. Objective Remarks GENERAL: Well-nourished, well-developed middle-aged female patient in NAD. Awake and alert. SKIN: Warm and dry. No rash. Bilateral lateral abdomen/flank area s/p I&D with dressings in place, right sided dressings with bloody drainage, left sided dressing C/D/I. +Mild tenderness to palpation. HEAD: Normocephalic. Atraumatic. EYES: Pupils equal and round. No scleral icterus. No injection or drainage. ENT: No nasal bleeding or discharge. Mucous membranes pink and moist. NECK: Supple. Trachea midline. CARDIOVASCULAR: Regular rate and rhythm. No murmur appreciated. RESPIRATORY: Nonlabored. Clear to auscultation. Breath sounds equal bilaterally. GASTROINTESTINAL: Abdomen soft, non-tender, nondistended. Normoactive bowel sounds x4. MUSCULOSKELETAL: No obvious deformities. Extremities without clubbing, cyanosis , or edema. NEUROLOGICAL: Awake and alert. No obvious cranial nerve deficits. Motor grossly within normal limits. Moving all extremities spontaneously. Normal speech. PSYCHIATRIC: Calm and cooperative with examination. Procedures s/p bedside I&D bilateral lateral abdominal/flank areas by Dr. Alicea A/P Problem List: (1) Abscess of skin of abdomen ICD Code: L02.211 - Cutaneous abscess of abdominal wall Assessment and Plan 47-year-old female with history of head injury in 1998, polysubstance use, IVDU , tobacco use, admitted to inpatient psych for depression, suicidal ideation, and drug addiction. Hospitalist consulted for "draining abscesses on abdomen". Depression/suicidal ideation: Acute -Continue management per psychiatry Polysubstance Abuse/IVDU: Acute -Patient reports she wants help getting clean -Continue management per psychiatry -Monitor for withdrawal Right abdominal abscesses 2: Acute, after injecting methamphetamine into this area. Afebrile. -GS following, s/p bedside I&D. Continue BID dressing changes with iodoform packing per GS orders. Pain management for dressing changes per GS. -Wound cx + Klebsiella Oxytoca sensitive to Bactrim -discontinue IV Vancomycin -Continue on Bactrim 1 tab twice daily to complete 14 day course -Tylenol prn pain Tobacco use: Chronic, smokes 1-1.5 PPD -[facility] Consultant on cessation -Nicotine patch Constipation, resolved -continue PeriColace BID -monitor for BM DVT prophylaxis: Patient is ambulatory Patient appears stable from hospitalist standpoint. [facility] will sign off. Please reconsult if needed. Floridalma Parmar Mar 31, 2018 11:16
--- NOTE | 2018-03-31 13:25 | HHI.PYPN ---
Subjective Chief Complaint: Suicidal threats Remarks Patient seen and examined with nurse. Chart reviewed. Patient's wound culture has grown out Klebsiella oxytocin sensitive to Bactrim, and so vancomycin has been discontinued and the patient continues on oral Bactrim. Case discussed with nursing staff who notes patient is quite comfortable on the unit. On my examination today, the patient says that she is feeling "pretty focused and staying positive." She denies any SI or HI. She does feel that she is improving with the Seroquel although she continues to complain of poor sleep. She notes the trazodone was helpful for this in the past and would like trazodone to be added to her regimen. She does note that methamphetamines " kept me level and normal feeling." No side effects from medications. No acute physical complaints. Review of Systems Except as stated in HPI: all other systems reviewed are Neg Mental Status Examination Appearance: Appropriate Consciousness: Alert Orientation: x4 Motor Activity: Other (No motor abnormalities noted) Speech: Unremarkable Language: Adequate Fund of Knowledge: Adequate Attention and Concentration: Adequate Memory: Unremarkable (Grossly intact on clinical exam) Mood: Appropriate Affect: Blunt Thought Process & Associations: Intact, Logical, Linear Thought Content: Appropriate Hallucination Type: None Delusion Type: None Suicidal Ideation: No Suicidal Plan: No Suicidal Intention: No Homicidal Ideation: No Homicidal Plan: No Homicidal Intention: No Insight: Adequate Judgment: Adequate Results Labs Test 03/30/18 16:45 Vancomycin Level Trough 11.0 MCG/ML Date/Time Source Procedure Growth Status 03/28/18 17:00 Abscess Abdomen Gram Stain - Final Complete 03/28/18 17:00 Wound Culture - Final Klebsiella Oxytoca Complete Labs reviewed Vitals/IOs Vital Signs Date Time Temp Pulse Resp B/P (MAP) Pulse Ox O2 Delivery O2 Flow Rate FiO2 03/31/18 09:20 72 102/51 (68) 03/31/18 07:54 97.5 17 94 Intake and Output 03/31/18 03/31/18 04/01/18 08:00 16:00 00:00 Intake Total 480 ml Balance 480 ml Assessment & Plan Problem List: (1) Adjustment disorder with depressed mood ICD Codes: F43.21 - Adjustment disorder with depressed mood (2) Malingering ICD Codes: Z76.5 - Malingerer [conscious simulation] (3) Polysubstance abuse ICD Codes: F19.10 - Other psychoactive substance abuse, uncomplicated Assessment & Plan Add trazodone 50 mg at bedtime. Continue Seroquel as ordered. Hospitalist input noted and appreciated. Continue other medications and care as ordered. Justification for Cont. Inpt. Medication changes Discharge Planning Possible discharge tomorrow Request HC Surrog/Guard Advoc?: No Julio Thao MD Mar 31, 2018 13:25
[2018-03-31 14:47] LABS: CREATININE 1.34 MG/DL (0.50-1.00)
[2018-03-31] MEDS: hydrOXYzine HCL 50 MG TAB PO PRN (15:47)
[2018-03-31 18:36] VITALS: BP 118/51; PULSE 84; RESP 16; TEMP 98.2; O2SAT 95
[2018-03-31] MEDS: REMOVE OLD NICODERM (NICOTINE) PATCH T-DERMAL SCH (21:00)
[2018-03-31] MEDS ORDERED: traZODone HCL 50 MG TAB PO SCH (21:00)
[2018-04-01] MEDS: ACETAMINOPHEN 325 MG TAB PO PRN (00:31)
[2018-04-01 05:56] VITALS: BP 78/43; PULSE 65; RESP 18; TEMP 97.6; O2SAT 93
[2018-04-01 07:00] VITALS: BP 86/56; PULSE 63
[2018-04-01 07:34] LABS: CREATININE 1.11 MG/DL (0.50-1.00)
[2018-04-01] MEDS: INSULIN ASPART SUPPLEMENTAL SCALE SQ SCH ×2 (07:40→11:56)
[2018-04-01] MEDS: SULFAMETHOXAZOLE-TRIMETHOPRIM DS 800-160 MG TAB PO SCH (08:34)
[2018-04-01] MEDS: NICOTINE 21 MG/24 HR PATCH T-DERMAL SCH (08:35)
[2018-04-01] MEDS: DOCUSATE SODIUM 50 MG/SENNA 8.6 MG TAB PO SCH (08:35)
[2018-04-01] MEDS: QUEtiapine FUMARATE 25 MG TAB PO SCH (08:35)
[2018-04-01 08:43] VITALS: BP 100/56; PULSE 88; RESP 20; TEMP 97.3; O2SAT 95
[2018-04-01] MEDS ORDERED: SULF1TAB23 PO (11:07)
[2018-04-01] MEDS ORDERED: TRAZ50TA12 PO (11:11)
[2018-04-01] MEDS ORDERED: SERO25TA PO ×2 (11:11)
[2018-04-01] MEDS ORDERED: HYDR50TA94 PO (11:11)
[2018-04-01] MEDS ORDERED: PERI PO (11:11)
--- NOTE | 2018-04-01 11:11 | HHI.DS ---
Psychiatry Discharge Summary Inpatient Psychiatric care?: Yes Advance Directive: No Mental Health AdvanceDirective: No Health Care Proxy: No Admission Admission Date Mar 27, 2018 at 09:13 Admission Diagnosis: (1) Adjustment disorder with depressed mood ICD Code: F43.21 - Adjustment disorder with depressed mood (2) Malingering ICD Code: Z76.5 - Malingerer [conscious simulation] (3) Polysubstance abuse ICD Code: F19.10 - Other psychoactive substance abuse, uncomplicated Brief History Ms. Cardozo is a 47-year-old female with a reported history of bipolar disorder who presents in transfer from [facility] under a [facility] act. Documentation from outside hospital reviewed. Patient presented there initially complaining of headache. She was evaluated and medically cleared. As she was being discharged, notes indicate that the patient "stated she lives in [facility]/does not have home and does not want to leave the hospital." Notes further indicate that the patient threatened to jump in front of a car if she were discharged. Patient's case was presented to on-call psychiatrist Dr. Acosta at [facility] who is documented to have said that he knows the patient very well and that she has made similar threats in the past and that he believes that she is low risk "since there is a secondary gain that the patient is trying to achieve with making such comments." Despite this, decision was made at outside hospital to Tellez act the patient and send her to [facility]. Reviewing our own electronic medical record, I see no previous psychiatric contact within our system. Patient seen and examined with nurse. Chart reviewed. Case discussed with nursing staff. On my examination today, the patient is a vague and fairly manipulative historian. She claims to have felt depressed for the last month without clear trigger. She endorses some guilty feelings "missing out on my grandkids." She says that she had suicidal ideation "the other night" with plan to jump in front of a vehicle, although she denies any suicidal ideation now. No other depressive symptoms. No hypomanic or manic symptoms presently, although the patient does report a history of bipolar disorder and insists that she has had an episode consistent with adrien as I describe it to her in the past. She reports audiovisual hallucinations in the past associated with substance use but denies any now. I can elicit no paranoia, no ideas of reference, no thought insertion or withdrawal or other delusional material. Remainder of the psychiatric ROS is negative. No acute physical complaints. Past psychiatric history: Patient reports a history of bipolar disorder. She is not currently under the care of a psychiatrist. She was admitted a few years ago to a facility called [facility]. She endorses previous suicide attempt by jumping in front of a car in 1998. She reports 1 other suicide attempt although she cannot recall the method. She denies any history of violent behavior. Family history: Patient is unsure of family psychiatric history. She does think that a cousin may have completed suicide. Chemical dependency history: The patient admits to current methamphetamine use. She endorses a history of cocaine and opiate use in the past. She has had a history of outpatient chemical dependency treatment. No reported history of abuse of GABAergic agents. Social history: Patient is homeless. She is . She has 3 sons and also has a daughter who 3 years ago following a motor vehicle accident. She has 1/10 grade education. She does not work. Denies any history. Denies any legal history. Denies any access to guns or firearms. She is a [employer]. She denies any history of abuse. Tobacco Use In Past 30 Days: 4 or Less Cigarettes/Day Alcohol Use: Never Hospital Course Patient was admitted to a locked, inpatient psychiatric unit. A general medical consultation was obtained. A surgical consultation was obtained for incision and drainage of abscesses on the patient's abdomen. Appropriate precautions were in place throughout patient's hospital stay. Patient was seen and examined on the unit by psychiatry and also visited by counselor. Psychotropic medications were adjusted. Patient tolerated medications well without side effects. Patient had improvement in presenting psychiatric symptomatology. There was no evidence of any suicidality or homicidality on the inpatient unit. There was no evidence of self-care deficit. The patient remained in behavioral control and was medication compliant. On the day of discharge: Patient seen and examined with nurse. Chart reviewed. Case discussed with nursing staff. No behavioral issues noted overnight. Case discussed in treatment team. On my examination today, the patient feels ready for discharge from the inpatient psychiatric unit today. She reports that her mood is improved versus admission, and I can elicit no depressive or hypomanic/ manic symptoms. She slept well overnight with the addition of trazodone. She denies any suicidal or homicidal ideation, intent or plan and contracts for safety. She denies any audiovisual hallucinations. I can elicit no delusional material. There is no evidence of any impairment in reality construction. She denies any side effects from medications. No acute physical complaints. Suicide and violence risk assessment on day of discharge both suggest lower imminent risk from mental illness, and the patient's level of function is adequate for outpatient care. Patient has maximized benefit from this inpatient psychiatric hospital stay and will be discharged home today with psychiatric follow-up as arranged by counselor. Patient is also to follow up with primary care. I have counseled the patient to abstain from substances of abuse. I have counseled the patient regarding warning signs for need to return to the psychiatric emergency room as part of a general safety plan. Results Blood Pressure 100 / 56 Vital Signs Date Time Temp Pulse Resp B/P (MAP) Pulse Ox O2 Delivery O2 Flow Rate FiO2 04/01/18 08:43 97.3 88 20 100/56 (71) 95 Laboratory Tests Test 03/30/18 07:59 03/30/18 16:45 03/31/18 14:12 04/01/18 05:39 Estimat Glomerular Filtration Rate 65 ML/MIN (>89) 42 ML/MIN (>89) 53 ML/MIN (>89) Vancomycin Level Trough 11.0 MCG/ML (5.0-10.0) Creatinine 1.34 MG/DL (0.50-1.00) 1.11 MG/DL (0.50-1.00) Blood Urea Nitrogen 19 MG/DL (7-18) Laboratory Results Test 03/28/18 13:25 Hemoglobin A1c 5.8 % (4.3-6.0) Summary of Procedures Incision and drainage of superficial abdominal abscesses on 03/28 Imaging Last Impressions Soft Tissue Ultrasound 03/28/18 0000 Signed Impressions: CONCLUSION: 1. Multiple complex fluid collections or phlegmonous masses in the lower anter ior abdominal wall on the left side and the right side, possibly small subcutan eous abscesses or inflammatory changes. Pending results at discharge: No Medications # of Antipsychotic meds at D/C: 1 Approp Antipsych med options 1 - Minimum of three failed multiple trials of monotherapy. 2 - Documented plan to taper to monotherapy due to previous use of multiple meds OR cross-taper in progress at D/C. 3 - Documentation of augmentation of Clozapine. 4 - Justification other than those listed in allowable values 1-3, document here : Discharge Discharge Date: Apr 01, 2018 Discharge Diagnosis: (1) Adjustment disorder with depressed mood Diagnosis: Principal (Resolved) ICD Code: F43.21 - Adjustment disorder with depressed mood (2) Malingering Diagnosis: Secondary ICD Code: Z76.5 - Malingerer [conscious simulation] (3) Polysubstance abuse Diagnosis: Secondary (Counseled to quit) ICD Code: F19.10 - Other psychoactive substance abuse, uncomplicated Pt Condition on Discharge: Stable Discharge Disposition: Discharge Home Discharge Instructions Diet Instructions: As Tolerated, No Restrictions Activities you can perform: Weight Bearing as Blanca Scheduled Appointment: As per counselors notes New Orders: BASIC METABOLIC PROF - 1 Week New Medications: Hydroxyzine HCl (Hydroxyzine HCl) 50 Mg Tab 50 MG PO Q6H PRN for Anxiety, #15 TAB 1 Refill Quetiapine (Seroquel) 25 Mg Tab 100 MG PO HS for Mental Health for 15 Days, TAB 1 Refill Quetiapine (Seroquel) 25 Mg Tab 25 MG PO DAILY for Mental Health for 15 Days, #15 TAB 1 Refill Sennosides-Docusate Sodium (Gnp Senna Plus 8.6-50 mg) 8.6 Mg-50 Mg Tab 1 TAB PO BID for Constipation for 15 Days, #30 TAB 1 Refill Sulfamethoxazole-Trimethoprim (Sulfamethoxazole-Trimethoprim) 800-160 Mg Tab 1 TAB PO Q12HR for infection for 7 Days, #14 TAB Trazodone (Trazodone) 50 Mg Tab 50 MG PO HS for Mental Health for 15 Days, TAB 1 Refill Continued Medications: Ibuprofen (Ibuprofen) 600 Mg Tab 600 MG PO TID PRN for PAIN SCALE 1 TO 10, #21 TAB 0 Refills Discharge Time <= 30 minutes Mental Status Examination Appearance: Appropriate Consciousness: Alert Orientation: x4 Motor Activity: Other (No motor abnormalities noted) Speech: Unremarkable Language: Adequate Fund of Knowledge: Adequate Attention and Concentration: Adequate Memory: Unremarkable (Grossly intact on clinical exam) Mood: Appropriate Affect: Appropriate Thought Process & Associations: Intact, Logical, Goal directed, Linear Thought Content: Appropriate Hallucination Type: None Delusion Type: None Suicidal Ideation: No Suicidal Plan: No Suicidal Intention: No Homicidal Ideation: No Homicidal Plan: No Homicidal Intention: No Insight: Adequate Judgment: Adequate Discharge/Advance Care Plan Health Problems: (1) Adjustment disorder with depressed mood (2) Malingering (3) Polysubstance abuse Goals to promote your health * To prevent worsening of your condition and complications * To maintain your health at the optimal level Directions to meet your goals Take your medications as prescribed Follow your dietary instruction Follow activity as directed Keep your appointments as scheduled Take your immunizations and boosters as scheduled If your symptoms worsen call your PCP, if no PCP go to Urgent Care Center or Emergency Room For 17/05 questions related to your inpatient stay or results of tests pending at discharge, please contact Dr. Julio Thao at Smoking is Dangerous to Your Health. Avoid second hand smoking Julio Thao MD Apr 01, 2018 11:11
--- NOTE | 2018-04-01 11:22 | HHI.PR ---
Subjective Remarks 47-year-old female with history of IV drug abuse who was admitted for suicidal ideations. She states that she has done well on the [facility] unit and is expecting a discharge as early as today. Her abdomen she states has far less drainage than before and is far less painful. She is currently taking p.o. antibiotics for her infection. Objective Vitals Vital Signs Date Time Temp Pulse Resp B/P (MAP) Pulse Ox O2 Delivery O2 Flow Rate FiO2 04/01/18 08:43 97.3 88 20 100/56 (71) 95 04/01/18 07:00 63 86/56 (66) 04/01/18 05:56 97.6 65 18 78/43 (55) 93 03/31/18 18:36 98.2 84 16 118/51 (73) 95 I/O 03/31/18 03/31/18 03/31/18 04/01/18 04/01/18 04/01/18 07:00 15:00 23:00 07:00 15:00 23:00 Intake Total 1200 ml 1920 ml 480 ml Balance 1200 ml 1920 ml 480 ml Intake Oral 1200 ml 1920 ml 480 ml # Voids 2 3 0 Result Diagram: 03/28/18 1325 04/01/18 0539 Objective Remarks GENERAL: Well-nourished, well-developed patient. SKIN: Warm and dry. Skin infection of right lateral abdomen. To focus points, each with 1.8 cm of induration and central wound, approximately 4 mm with minimal drainage. HEAD: Normocephalic. EYES: No scleral icterus. No injection or drainage. NECK: Supple, trachea midline. No JVD or lymphadenopathy. CARDIOVASCULAR: Regular rate and rhythm without murmurs, gallops, or rubs. RESPIRATORY: Breath sounds equal bilaterally. No accessory muscle use. GASTROINTESTINAL: Abdomen soft, non-tender, nondistended. EXTREMITIES: No cyanosis, or edema. NEUROLOGICAL: Awake, alert, and oriented x 3. Non-focal. Procedures s/p bedside I&D bilateral lateral abdominal/flank areas by Dr. Alicea A/P Problem List: (1) Abscess of skin of abdomen ICD Code: L02.211 - Cutaneous abscess of abdominal wall Assessment and Plan 47-year-old female with history of head injury in 1998, polysubstance use, IVDU , tobacco use, admitted to inpatient psych for suicidal ideation. Hospitalist consulted for abdominal wall abscess. Suicidal ideation Currently under treatment on [facility]. Patient states she is expecting a discharge soon h/o IV drug use Patient reports that she will be discharged home to live with her mother She feels at this time motivated to become clean Right abdominal abscesses Occurred in the site of IV drug use injection Drainage at this point is minimal, tenderness is minimal, induration is much reduced, drainage is nearly absent Wound culture shows Klebsiella with sensitivity to Bactrim Continue Bactrim to complete 14 day course Tobacco abuse Patient smokes 1.5 packs per day Counseled to quit Discharge planning Patient reports that she will be going home as early as today Antibiotic prescription printed for her to fill Neeraj Conti MD Apr 01, 2018 11:22
[2018-04-01] MEDS: hydrOXYzine HCL 50 MG TAB PO PRN (13:40)
== END 2018-04-01 15:30 | disposition home or self-care (01) | DRG 881 ==
LOC: H270 09:13 → H4EA 03-28 17:39
PROVIDERS: ADMIT Psychiatry & Neurology Psychiatry; ATTEND Psychiatry & Neurology Psychiatry
PROC: 0H97XZZ Drainage of Abdomen Skin, External Approach (ICD-10-PCS; principal; 2018-03-28)
DX: F43.21 Adjustment disorder with depressed mood (principal); L02.211 Cutaneous abscess of abdominal wall; R45.851 Suicidal ideations; F31.9 Bipolar disorder, unspecified; K59.00 Constipation, unspecified; F41.9 Anxiety disorder, unspecified; R73.9 Hyperglycemia, unspecified; F19.10 Other psychoactive substance abuse, uncomplicated; F14.90 Cocaine use, unspecified, uncomplicated; F17.210 Nicotine dependence, cigarettes, uncomplicated; Z59.0 Homelessness; Z91.5 Personal history of self-harm; Z76.5 Malingerer [conscious simulation]; Z87.828 Personal history of other (healed) physical injury and trauma; Z83.3 Family history of diabetes mellitus; Z86.19 Personal history of other infectious and parasitic diseases
CPT/HCPCS: 76937; 76999; 80053; 80202; 82565; 82948; 83036; 84520; 84703; 85025; 87070; 87077; 87186; 87205; 93005; J1815; J3370; J7040; J7050